=== PATIENT | female | born 1950 | race Caucasian/White ===

== ENCOUNTER → 2021-05-13 | Outpatient (CLI) | payer MEDICARE | LOC: KOH-I 15:01 | DX: M25.512 Pain in left shoulder (principal); M25.511 Pain in right shoulder | CPT/HCPCS: 73030 ==

== ENCOUNTER → 2021-06-05 | Outpatient (CLI) | payer MEDICARE | LOC: KOH-I 06-03 10:00 | DX: R80.9 Proteinuria, unspecified (principal) | CPT/HCPCS: 76700 ==